=== PATIENT | male | born 1995 | race Two or more races ===

== ENCOUNTER 2018-05-28 02:53 | Emergency (ER) | payer OTHER ==
[~2018-05-28] VITALS: Ht 167.6 cm; Wt 55.0 kg
[2018-05-28 03:20] VITALS: BP 118/71
== END 2018-05-28 04:49 ==
LOC: ER 02:53
DX: S80.811A Abrasion, right lower leg, initial encounter (principal); R07.89 Other chest pain; R51 Headache; R10.9 Unspecified abdominal pain; F17.200 Nicotine dependence, unspecified, uncomplicated; Z90.49 Acquired absence of other specified parts of digestive tract; Z88.0 Allergy status to penicillin; V89.2XXA Person injured in unspecified motor-vehicle accident, traffic, initial encounter; Y93.89 Activity, other specified; Y92.89 Other specified places as the place of occurrence of the external cause; Y99.8 Other external cause status
CPT/HCPCS: 71045; 99283